=== PATIENT | female | born 1965 | race Caucasian/White ===

== ENCOUNTER 2021-01-06 09:10 | Emergency (ER) | payer MEDICAID ==
[2021-01-06] MEDS ORDERED: cefTRIAXone 1 GM in Sodium Chloride 0.9% 50 ML IV ONE (09:55)
[2021-01-06] MEDS ORDERED: Ondansetron 4 MG/2 ML SDV IVPUSH ONE (09:55)
[2021-01-06] MEDS ORDERED: Lactated Ringers 1,000 ML IV SCH (10:00)
[2021-01-06] MEDS ORDERED: Sodium Chloride 0.9% 1,000 ML IV SCH (10:00)
--- NOTE | 2021-01-06 10:05 | EDM.PDOC ---
ED HPI GENERAL MEDICAL PROBLEM - General Chief Complaint: General Stated Complaint: DEHYDRATED PER CLINIC Time Seen by Provider: 01/06/21 09:40 Source of Information: Reports: Patient, Family, Old Records, RN Notes Reviewed History Limitations: Reports: No Limitations - History of Present Illness INITIAL COMMENTS - FREE TEXT/NARRATIVE: 55-year-old female presents to the emergency department today complaint of not feeling well, she states she has some nausea and vomiting generally ill feeling fatigued. Was in the clinic yesterday evaluation at that time was consistent with a urinary tract infection she returns to the emergency department for further evaluation. She was also sent over for blood cultures today from clinic. She states she has been feeling poor for about a month but over the last week or so it has gotten progressively worse did have a skin biopsy for an atypical lesion removed from her back she did develop an abscess in that area and is not fully healed yet did do a course of antibiotics Bactrim and doxycycline, did not tolerate the Bactrim initially and then will switch to doxycycline - Related Data Allergies Allergy/AdvReac Type Severity Reaction Status Date / Time No Known Allergies Allergy Verified 01/06/21 09:31 Home Meds: Home Meds Doxycycline Hyclate 100 mg PO BID 01/06/21 [History] Furosemide 20 mg PO ASDIRECTED PRN 01/06/21 [History] Ibuprofen 800 mg PO ASDIRECTED PRN 01/06/21 [History] Levothyroxine [Synthroid] 88 mcg PO DAILY 01/06/21 [History] Liothyronine [Cytomel] 5 mcg PO DAILY 01/06/21 [History] SUMAtriptan 100 mg PO ASDIRECTED PRN 01/06/21 [History] Verapamil HCl 360 mg PO DAILY 01/06/21 [History] nitrofurantoin macrocrystaL [Nitrofurantoin] 100 mg PO BID 01/06/21 [History] Past Medical History - Infectious Disease History Infectious Disease History: Reports: Chicken Pox - Past Surgical History HEENT Surgical History: Reports: Tonsillectomy GI Surgical History: Reports: Appendectomy Female Surgical History: Reports: Hysterectomy Musculoskeletal Surgical History: Reports: Other (See Below) Other Musculoskeletal Surgeries/Procedures:: back surgery Dermatological Surgical History: Reports: Other (See Below) Social & Family History - Tobacco Use Tobacco Use Status *Q: Never Tobacco User - Caffeine Use Caffeine Use: Reports: Coffee - Recreational Drug Use Recreational Drug Use: No ED ROS GENERAL - Review of Systems Review Of Systems: See Below Constitutional: Reports: Fever, Chills, Fatigue HEENT: Reports: No Symptoms Respiratory: Reports: No Symptoms Cardiovascular: Reports: No Symptoms GI/Abdominal: Reports: Nausea, Vomiting. Denies: Abdominal Pain : Reports: No Symptoms Skin: Reports: No Symptoms Neurological: Reports: No Symptoms ED EXAM, GENERAL - Physical Exam Exam: See Below Free Text/Narrative:: Examination of the back she does have a wound there is some small amount of purulent drainage from it is approximately 5 mm x 15 mm in size mild amount erythema around the wound is located approximately T10 level right side paraspinal muscle Exam Limited By: No Limitations General Appearance: Alert, WD/WN, No Apparent Distress Respiratory/Chest: No Respiratory Distress, Lungs Clear, Normal Breath Sounds, No Accessory Muscle Use, Chest Non-Tender Cardiovascular: Regular Rate, Rhythm, No Murmur GI/Abdominal: Soft, Non-Tender Extremities: No Pedal Edema Course - Vital Signs Last Recorded V/S: Last Vital Signs Temp 98 F 01/06/21 10:47 Pulse 99 01/06/21 10:47 Resp 16 01/06/21 09:47 BP 114/58 L 01/06/21 10:47 Pulse Ox 97 01/06/21 09:47 - Orders/Labs/Meds Orders: Active Orders 24 hr Category Date Time Status Vital Signs [RC] Q1H Care 01/06/21 09:47 Active CULTURE BLOOD [BC] Urgent Lab 01/06/21 09:50 Received CULTURE BLOOD [BC] Urgent Lab 01/06/21 10:00 Received CULTURE URINE [RM] Urgent Lab 01/06/21 11:17 Ordered CULTURE WOUND + SMEAR [RM] Stat Lab 01/06/21 09:47 Results Sodium Chloride 0.9% [Normal Saline] 1,000 ml Med 01/06/21 10:00 Active IV ASDIRECTED Blood Culture x2 Reflex Set [OM.PC] Urgent Oth 01/06/21 09:47 Ordered Severe Sepsis Onset Time [OM.PC] Stat Oth 01/06/21 09:47 Ordered Medication Orders Sodium Chloride (Normal Saline) 1,000 mls @ 999 mls/hr IV ASDIRECTED AL Last Admin: 01/06/21 10:19 Dose: 999 mls/hr Documented by: MICHAEL Labs: Laboratory Tests 01/06/21 01/06/21 01/06/21 Range/Units 09:47 09:47 09:49 WBC (4.5-11.0) K/uL RBC (3.30-5.50) M/uL Hgb (12.0-15.0) g/dL Hct (36.0-48.0) % MCV (80-98) fL MCH (27-31) pg MCHC (32-36) % Plt Count (150-400) K/uL Neut % (Auto) (36-66) % Lymph % (Auto) (24-44) % [place] % (Auto) (2-6) % Eos % (Auto) (2-4) % Baso % (Auto) (0-1) % Sodium (140-148) mmol/L Potassium (3.6-5.2) mmol/L Chloride (100-108) mmol/L Carbon Dioxide (21-32) mmol/L Anion Gap (5.0-14.0) mmol/L BUN (7-18) mg/dL Creatinine (0.6-1.0) mg/dL Est Cr Clr Drug Dosing mL/min Estimated GFR (MDRD) (>60) Glucose (74-106) mg/dL Lactic Acid 1.1 (0.4-2.0) mmol/L Calcium (8.5-10.1) mg/dL Total Bilirubin (0.2-1.0) mg/dL AST (15-37) U/L ALT (12-78) U/L Alkaline Phosphatase (46-116) U/L Troponin I (0.000-0.056) ng/mL C-Reactive Protein (0.0-0.3) mg/dL Total Protein (6.4-8.2) g/dL Albumin (3.4-5.0) g/dL Globulin (2.3-3.5) g/dL Albumin/Globulin Ratio (1.2-2.2) Procalcitonin ng/mL TSH, Ultra Sensitive (0.358-3.740) uIU/mL Urine Color Yellow (YELLOW) Urine Appearance Slightly cloudy A (CLEAR) Urine pH 5.0 (5.0-8.0) Ur Specific [place] 1.015 (1.008-1.030) Urine Protein Negative (NEGATIVE) mg/dL Urine Glucose (UA) Negative (NEGATIVE) mg/dL Urine Ketones Negative (NEGATIVE) mg/dL Urine Occult Blood Trace-lysed H (NEGATIVE) Urine Nitrite Negative (NEGATIVE) Urine Bilirubin Negative (NEGATIVE) Urine Urobilinogen 0.2 (0.2-1.0) EU/dL Ur Leukocyte Esterase Large H (NEGATIVE) Urine RBC 0-5 (0-5) Urine WBC 10-20 H (0-5) Ur Epithelial Cells Few Amorphous Sediment Few Urine Bacteria Moderate Urine Mucus Few Influenza Type A RNA Negative (NEGATIVE) RSV RNA (INAAT) Negative (NEGATIVE) Influenza Type B RNA Negative (NEGATIVE) SARS-CoV-2 RNA (MANUEL) Negative (NEGATIVE) 01/06/21 01/06/21 01/06/21 Range/Units 09:52 10:00 10:00 WBC 5.0 (4.5-11.0) K/uL RBC 5.19 (3.30-5.50) M/uL Hgb 13.8 (12.0-15.0) g/dL Hct 41.5 (36.0-48.0) % MCV 80 (80-98) fL MCH 27 (27-31) pg MCHC 33 (32-36) % Plt Count 250 (150-400) K/uL Neut % (Auto) 37 (36-66) % Lymph % (Auto) 49 H (24-44) % [place] % (Auto) 13 H (2-6) % Eos % (Auto) 1 L (2-4) % Baso % (Auto) 0 (0-1) % Sodium 145 (140-148) mmol/L Potassium 3.2 L (3.6-5.2) mmol/L Chloride 106 (100-108) mmol/L Carbon Dioxide 28 (21-32) mmol/L Anion Gap 14.2 H (5.0-14.0) mmol/L BUN 32 H (7-18) mg/dL Creatinine 1.2 H (0.6-1.0) mg/dL Est Cr Clr Drug Dosing 45.20 mL/min Estimated GFR (MDRD) 46 L (>60) Glucose 92 (74-106) mg/dL Lactic Acid (0.4-2.0) mmol/L Calcium 9.8 (8.5-10.1) mg/dL Total Bilirubin 0.5 (0.2-1.0) mg/dL AST 18 (15-37) U/L ALT 29 (12-78) U/L Alkaline Phosphatase 110 (46-116) U/L Troponin I < 0.017 (0.000-0.056) ng/mL C-Reactive Protein 0.27 (0.0-0.3) mg/dL Total Protein 6.2 L (6.4-8.2) g/dL Albumin 3.3 L (3.4-5.0) g/dL Globulin 2.9 (2.3-3.5) g/dL Albumin/Globulin Ratio 1.1 L (1.2-2.2) Procalcitonin ng/mL TSH, Ultra Sensitive < 0.007 L (0.358-3.740) uIU/mL Urine Color (YELLOW) Urine Appearance (CLEAR) Urine pH (5.0-8.0) Ur Specific [place] (1.008-1.030) Urine Protein (NEGATIVE) mg/dL Urine Glucose (UA) (NEGATIVE) mg/dL Urine Ketones (NEGATIVE) mg/dL Urine Occult Blood (NEGATIVE) Urine Nitrite (NEGATIVE) Urine Bilirubin (NEGATIVE) Urine Urobilinogen (0.2-1.0) EU/dL Ur Leukocyte Esterase (NEGATIVE) Urine RBC (0-5) Urine WBC (0-5) Ur Epithelial Cells Amorphous Sediment Urine Bacteria Urine Mucus Influenza Type A RNA (NEGATIVE) RSV RNA (INAAT) (NEGATIVE) Influenza Type B RNA (NEGATIVE) SARS-CoV-2 RNA (MANUEL) (NEGATIVE) 01/06/21 Range/Units 10:00 WBC (4.5-11.0) K/uL RBC (3.30-5.50) M/uL Hgb (12.0-15.0) g/dL Hct (36.0-48.0) % MCV (80-98) fL MCH (27-31) pg MCHC (32-36) % Plt Count (150-400) K/uL Neut % (Auto) (36-66) % Lymph % (Auto) (24-44) % [place] % (Auto) (2-6) % Eos % (Auto) (2-4) % Baso % (Auto) (0-1) % Sodium (140-148) mmol/L Potassium (3.6-5.2) mmol/L Chloride (100-108) mmol/L Carbon Dioxide (21-32) mmol/L Anion Gap (5.0-14.0) mmol/L BUN (7-18) mg/dL Creatinine (0.6-1.0) mg/dL Est Cr Clr Drug Dosing mL/min Estimated GFR (MDRD) (>60) Glucose (74-106) mg/dL Lactic Acid (0.4-2.0) mmol/L Calcium (8.5-10.1) mg/dL Total Bilirubin (0.2-1.0) mg/dL AST (15-37) U/L ALT (12-78) U/L Alkaline Phosphatase (46-116) U/L Troponin I (0.000-0.056) ng/mL C-Reactive Protein (0.0-0.3) mg/dL Total Protein (6.4-8.2) g/dL Albumin (3.4-5.0) g/dL Globulin (2.3-3.5) g/dL Albumin/Globulin Ratio (1.2-2.2) Procalcitonin < 0.05 ng/mL TSH, Ultra Sensitive (0.358-3.740) uIU/mL Urine Color (YELLOW) Urine Appearance (CLEAR) Urine pH (5.0-8.0) Ur Specific [place] (1.008-1.030) Urine Protein (NEGATIVE) mg/dL Urine Glucose (UA) (NEGATIVE) mg/dL Urine Ketones (NEGATIVE) mg/dL Urine Occult Blood (NEGATIVE) Urine Nitrite (NEGATIVE) Urine Bilirubin (NEGATIVE) Urine Urobilinogen (0.2-1.0) EU/dL Ur Leukocyte Esterase (NEGATIVE) Urine RBC (0-5) Urine WBC (0-5) Ur Epithelial Cells Amorphous Sediment Urine Bacteria Urine Mucus Influenza Type A RNA (NEGATIVE) RSV RNA (INAAT) (NEGATIVE) Influenza Type B RNA (NEGATIVE) SARS-CoV-2 RNA (MANUEL) (NEGATIVE) Meds: Medications Generic Name Dose Route Start Last Admin Trade Name Freq PRN Reason Stop Dose Admin Sodium Chloride 1,000 mls @ 999 mls/hr 01/06/21 10:00 01/06/21 10:19 Normal Saline IV 999 mls/hr ASDIRECTED AL Administration Discontinued Medications Generic Name Dose Route Start Last Admin Trade Name Leighton PRN Reason Stop Dose Admin Lactated Ringer's 1,000 mls @ 999 mls/hr 01/06/21 10:00 Ringers, Lactated IV ASDIRECTED [facility] Ceftriaxone Sodium 1 gm/ 50 mls @ 100 mls/hr 01/06/21 09:55 01/06/21 10:19 Sodium Chloride IV 01/06/21 10:24 100 mls/hr ONETIME ONE Administration Ondansetron HCl 4 mg 01/06/21 09:55 01/06/21 10:18 Ondansetron 4 Mg/2 Ml Sdv IVPUSH 01/06/21 09:56 4 mg ONETIME ONE Administration Departure - Departure Time of Disposition: 11:19 Disposition: Home, Self-Care 01 Condition: Fair Clinical Impression: Hyperthyroidism - Discharge Information Instructions: Hyperthyroidism Referrals: PCP,None [Primary Care Provider] - Forms: ED Department Discharge Additional Instructions: Please call your sewing machine operator zipper today for recommendations on medications, call return to the emergency department with worsening of symptoms Sepsis Event Note (ED) - Evaluation Sepsis Screening Result: Possible Sepsis Risk - Focused Exam Vital Signs: Vital Signs Temp Pulse Resp BP Pulse Ox 01/06/21 10:47 98 F 99 114/58 L 01/06/21 09:47 98 F 105 H 16 149/62 H 97 01/06/21 09:25 98.0 F 110 H 16 149/62 H 97 - My Orders Last 24 Hours: My Active Orders 01/06/21 09:47 Vital Signs [RC] Q1H CULTURE WOUND + SMEAR [RM] Stat Blood Culture x2 Reflex Set [OM.PC] Urgent Severe Sepsis Onset Time [OM.PC] Stat 01/06/21 09:50 CULTURE BLOOD [BC] Urgent 01/06/21 10:00 CULTURE BLOOD [BC] Urgent Sodium Chloride 0.9% [Normal Saline] 1,000 ml IV ASDIRECTED 01/06/21 11:17 CULTURE URINE [RM] Urgent - Assessment/Plan Last 24 Hours: My Active Orders 01/06/21 09:47 Vital Signs [RC] Q1H CULTURE WOUND + SMEAR [RM] Stat Blood Culture x2 Reflex Set [OM.PC] Urgent Severe Sepsis Onset Time [OM.PC] Stat 01/06/21 09:50 CULTURE BLOOD [BC] Urgent 01/06/21 10:00 CULTURE BLOOD [BC] Urgent Sodium Chloride 0.9% [Normal Saline] 1,000 ml IV ASDIRECTED 01/06/21 11:17 CULTURE URINE [RM] Urgent Plan: Assessment Acuity = acute Site and laterality = hyperthyroidism Etiology = medication Manifestations = fatigue, tachycardia, weight loss Location of injury = Home Lab values = CBC unremarkable potassium low at 3.2 consistent hypokalemia creatinine elevated 1.2 consistent chronic renal failure stage T3a troponin was negative lactic acid normal procalcitonin negative TSH 0.007 urinalysis reveals large leukocyte Estrace 10-20 WBCs consistent with pyuria Covid was negative influenza negative blood cultures and urine cultures pending Plan I did review lab work with her as well as her TSH she is on combination levothyroxine and Cytomel I believe this is contributing to her problem I have asked her to contact her sewing machine operator zipper today for recommendations on reducing these drugs and then recheck TSH in 6 weeks This note was dictated using [employer] voice recognition software please call with any questions on syntax or grammar.
--- NOTE | 2021-01-06 10:46 | CR ---
CHEST: 2 view CLINICAL HISTORY:Tachycardia COMPARISON:None FINDINGS: The heart size, pulmonary vascularity and hilar structures are normal. No infiltrate effusion or pneumothorax is seen. IMPRESSION: No acute cardiopulmonary process.
[2021-01-06 10:56] LABS: CORONAVIRUS COVID-19 NAA NEGATIVE (NEGATIVE)
== END 2021-01-06 11:37 | disposition home or self-care (01) ==
LOC: JP.ED 09:10
DX: E05.90 Thyrotoxicosis, unspecified without thyrotoxic crisis or storm (principal); Z20.822 Contact with and (suspected) exposure to COVID-19; Z79.899 Other long term (current) drug therapy
CPT/HCPCS: 0241U; 36415; 71046; 71046-26; 80053; 81001; 83605; 84145; 84443; 84484; 85025; 86140; 87040; 87070; 87086; 87205; 96365; 96375; 99283-25; 99284; J0696; J2405; J7030

== ENCOUNTER 2021-02-04 12:23 | Emergency (ER) | payer OTHER, MEDICAID ==
[2021-02-04] MEDS ORDERED: Proparacaine 0.5% Ophth Soln 15 ML Bottle EYEBOTH STA (13:46)
[2021-02-04] MEDS ORDERED: Bacitracin Oint 1 GM U/D Packet TOP ONE (13:48)
--- NOTE | 2021-02-04 13:52 | EDM.PDOC ---
ED HPI GENERAL MEDICAL PROBLEM - General Chief Complaint: Eye Problems Stated Complaint: SCRATCHED IN THE EYE BY A DOG AT WORK Time Seen by Provider: 02/04/21 13:45 Source of Information: Reports: Patient, Family, RN Notes Reviewed History Limitations: Reports: No Limitations - History of Present Illness INITIAL COMMENTS - FREE TEXT/NARRATIVE: 55-year-old female presents emergency department day with a laceration to her right eyelid, she was wearing her glasses had a dog in her arms who then believed out of her arms and his toe nail caught the corner of her eyelid and she now has a small 1 cm laceration bleeding is controlled Right Eyelid Pain Score (Numeric/FACES): 7 - Related Data Allergies Allergy/AdvReac Type Severity Reaction Status Date / Time No Known Allergies Allergy Verified 02/04/21 13:23 Home Meds: Home Meds Furosemide 20 mg PO ASDIRECTED PRN 01/06/21 [History] Ibuprofen 800 mg PO ASDIRECTED PRN 01/06/21 [History] Levothyroxine [Synthroid] 88 mcg PO DAILY 01/06/21 [History] SUMAtriptan 100 mg PO ASDIRECTED PRN 01/06/21 [History] Verapamil HCl 360 mg PO DAILY 01/06/21 [History] Liothyronine Sodium 5 mcg PO DAILY 02/04/21 [History] Past Medical History Neurological History: Reports: Migraines Endocrine/Metabolic History: Reports: Hypothyroidism - Infectious Disease History Infectious Disease History: Reports: Chicken Pox - Past Surgical History HEENT Surgical History: Reports: Tonsillectomy GI Surgical History: Reports: Appendectomy Female Surgical History: Reports: Hysterectomy Endocrine Surgical History: Reports: Thyroidectomy Musculoskeletal Surgical History: Reports: Other (See Below) Other Musculoskeletal Surgeries/Procedures:: back surgery Dermatological Surgical History: Reports: Other (See Below) Social & Family History - Tobacco Use Tobacco Use Status *Q: Former Tobacco User Used Tobacco, but Quit: Yes Month/Year Tobacco Last Used: 30 years - Caffeine Use Caffeine Use: Reports: Coffee - Recreational Drug Use Recreational Drug Use: No ED ROS GENERAL - Review of Systems Review Of Systems: See Below HEENT: Reports: No Symptoms Skin: Reports: Wound ED EXAM GENERAL W FULL EYE - Physical Exam Exam: See Below Exam Limited By: No Limitations General Appearance: Alert, WD/WN, No Apparent Distress Eye Exam: Right Eye: Other (left eye lid laceration), Bilateral Eye: EOMI, No rmal Inspection Eyelids: Left: Normal Appearance Conjunctiva & Sclera: Bilateral: Normal Appearance ED LACERATION PROCEDURES - Laceration/Wound Repair Right Face Lac/wound length in cm: 1.3 Appearance: Subcutaneous, Irregular Distal NVT: Neuro & Vascular Intact, No Tendon Injury Anesthetic Type: Local Local Anesthesia - Lidocaine (Xylocaine): 1% Plain Local Anesthetic Volume: 1cc Skin Prep: Saline Saline irrigation (cc's): 20 Exploration/Debridement/Repair: Wound Explored, In a Bloodless Field, Explored to Base Suture Size: 6-0 # of Sutures: 3 Suture Type: Prolene, Interrupted Tetanus Status Addressed: Yes Complications: No Course - Vital Signs Last Recorded V/S: Last Vital Signs Temp 97.5 F 02/04/21 13:21 Pulse 79 02/04/21 13:21 Resp 16 02/04/21 13:21 BP 117/47 L 02/04/21 13:21 Pulse Ox 100 02/04/21 13:21 - Orders/Labs/Meds Meds: Medications Discontinued Medications Generic Name Dose Route Start Last Admin Trade Name Leighton PRN Reason Stop Dose Admin Bacitracin 1 dose 02/04/21 13:48 02/04/21 14:44 Bacitracin Oint 1 Gm U/D Packet TOP 02/04/21 13:49 1 dose ONETIME ONE Administration Lidocaine HCl 5 ml 02/04/21 13:48 02/04/21 14:44 Lidocaine 1% 5 Ml Sdv INJECT 02/04/21 13:49 5 ml ONETIME ONE Administration Proparacaine HCl 1 ml 02/04/21 13:46 02/04/21 14:45 Proparacaine 0.5% Ophth Soln 15 Ml Bottle EYEBOTH 02/04/21 13:47 2 drop NOW STA Administration Departure - Departure Time of Disposition: 14:52 Disposition: Home, Self-Care 01 Condition: Fair Clinical Impression: Eyelid laceration, right Qualifiers: Encounter type: initial encounter Qualified Code(s): S01.111A - Laceration without foreign body of right eyelid and periocular area, initial encounter - Discharge Information Instructions: Laceration Care, Adult Referrals: Teresa Morales PA-C [Primary Care Provider] - Forms: ED Department Discharge Additional Instructions: Follow wound care instruction sheet, suture removal in 3 days, call return to the emergency department worsening symptoms return to primary care or provider for suture removal Sepsis Event Note (ED) - Evaluation Sepsis Screening Result: No Definite Risk - Focused Exam Vital Signs: Vital Signs Temp Pulse Resp BP Pulse Ox 02/04/21 13:21 97.5 F 79 16 117/47 L 100 02/04/21 12:59 97.5 F 79 16 117/47 L 100 - Assessment/Plan Plan: Assessment Acuity = acute Site and laterality = 13 mm laceration right eyelid Etiology = trauma secondary to a dog Manifestations = none Location of injury = Home Lab values = none Plan Suture removal in 3 days follow wound care instruction sheet This note was dictated using [employer] voice recognition software please call with any questions on syntax or grammar.
[2021-02-04] MEDS ORDERED: Diphtheria,Pertussis(Acell),Tetanus Vaccine 0.5 ML Syringe IM ONE (14:57)
== END 2021-02-04 15:06 | disposition home or self-care (01) ==
LOC: JP.ED 12:23
DX: S01.111A Laceration without foreign body of right eyelid and periocular area, initial encounter (principal); E03.9 Hypothyroidism, unspecified; Z79.899 Other long term (current) drug therapy; Z87.891 Personal history of nicotine dependence; Z23 Encounter for immunization; W22.8XXA Striking against or struck by other objects, initial encounter
CPT/HCPCS: 12011; 90471; 90715; 99282; 99282-25; A9270-GY

== ENCOUNTER 2022-09-21 05:16 | Emergency (ER) | payer MEDICAID, OTHER ==
[2022-09-21] MEDS ORDERED: Sodium Chloride 0.9% 10 ML Syringe FLUSH PRN (05:42)
[2022-09-21] MEDS ORDERED: Ondansetron 4 MG/2 ML SDV IVPUSH ONE (05:42)
[2022-09-21] MEDS ORDERED: Sodium Chloride 0.9% 1,000 ML IV ONE (05:42)
[2022-09-21] MEDS ORDERED: Ketorolac 30 MG/ML SDV IVPUSH ONE (06:03)
[2022-09-21 06:27] LABS: ESTIMATED GFR 65 mL/min (>60)
[2022-09-21 06:38] LABS: CORONAVIRUS COVID-19 NAA NEGATIVE (NEGATIVE)
[2022-09-21] MEDS ORDERED: Albuterol 0.083% 2.5 MG/3 ML Neb Soln NEB ONE (06:46)
[2022-09-21] MEDS ORDERED: Lactated Ringers 1,000 ML IV SCH (07:00)
== END 2022-09-21 08:11 | disposition home or self-care (01) ==
LOC: JP.ED 05:16
DX: E86.0 Dehydration (principal); J06.9 Acute upper respiratory infection, unspecified; R11.2 Nausea with vomiting, unspecified; E87.6 Hypokalemia; E03.9 Hypothyroidism, unspecified; Z79.899 Other long term (current) drug therapy; Z20.822 Contact with and (suspected) exposure to COVID-19
CPT/HCPCS: 0241U; 36415; 80053; 83690; 85025; 94640; 96361; 96374; 96375; 99284; J1885; J2405; J3490; J7030; J7120